=== PATIENT | female | born 1935 | race Hispanic/Latino ===

== ENCOUNTER 2024-08-16 12:30 | Inpatient (IN) | payer MEDICAID, SELFPAY ==
[2024-08-16 12:54] LABS: #Basophils Less than 0.03 10x3/uL (0.0-0.2); #Eosinophils Less than 0.03 10x3/uL (0.0-0.7); %Basophils 0.2 % (0.0-1.0); %Lymphocytes 21.2 % (21.0-51.0); %Neutrophils 68.4 % (42.0-75.0); Hemoglobin 9.9 g/dL (12.0-16.0); Mean Corpuscular HGB CONC 30.9 g/dL (32.0-36.0); Mean Corpuscular Hemoglobin 27.1 pg (27.0-31.0); Mean Corpuscular Volume 87.7 fL (78.0-98.0); Mean Platelet Volume 11.5 fL (7.4-10.4); Platelet Count 146 10x3/uL (130-400); RBC Distribution Width 13.2 % (11.5-14.5); Red Blood Cell (RBC) Count 3.65 mill/uL (4.20-5.40)
[2024-08-16 13:15] LABS: ALT (SGPT) 27 U/L (8-55); AST (SGOT) 124 U/L (5-34); Albumin 3.3 g/dL (3.4-4.8); Alkaline Phosphatase 134 U/L (40-110); Anion Gap 15 mmol/L (10-20); BUN (Urea Nitrogen) 53 mg/dL (9.8-20.1); Bilirubin, Total 0.5 mg/dL (0.2-1.2); Calc. Creatinine Clearance 0 mL/min (70-130); Calcium 9.3 mg/dL (7.8-10.44); Carbon Dioxide 19 mmol/L (23-31); Chloride 106 mmol/L (98-107); Estimated GFR 20; Globulin 4.4 g/dL (2.4-3.5); Glucose 144 mg/dL (83-110); Potassium 4.2 mmol/L (3.5-5.1); Protein, Total 7.7 g/dL (5.8-8.1); Sodium 136 mmol/L (136-145)
[2024-08-16 13:30] LABS: Troponin I 36.915 ng/mL (< 0.028)
[2024-08-16] MEDS ORDERED: fentaNYL 50 mcg/mL 1 mL Vial ONE (13:34)
[2024-08-16] MEDS ORDERED: Aspirin Chewable 81 MG TAB ONE (13:35)
[2024-08-16 13:44] LABS: INR-International Normal Ratio 1.1; Prothrombin Time 14.3 sec (12.0-14.7)
[2024-08-16 13:45] LABS: PTT 39.5 sec (22.9-36.1)
[2024-08-16] MEDS ORDERED: Heparin 25,000 units/D5W 500 ML ONE (13:47)
[2024-08-16] MEDS ORDERED: Heparin 5,000 UNITS/ML VIAL ONE (13:47)
[2024-08-16] MEDS ORDERED: KETAMINE 100 MG/ML (5ML VIAL) ONE (13:58)
[2024-08-16] MEDS ORDERED: Rocuronium Bromide 10 MG/ML (10ML VIAL) ONE ×2 (13:59→14:06)
[2024-08-16] MEDS ORDERED: EPINEPHrine 1 MG/10 ML Abboject SYRINGE ONE (14:06)
[2024-08-16] MEDS ORDERED: Furosemide 40 MG (4 mL) VIAL ONE (14:15)
[2024-08-16] MEDS ORDERED: Fentanyl CADD 100 ML IV SCH (14:30)
[2024-08-16] MEDS ORDERED: DOBUTamine 500 mg/250 ml 250 ML ONE (14:37)
[2024-08-16 14:54] LABS: Actual Bicarbonate (HCO3a) 15.8 mEq/L (22-28); Analyzer IN Cardio ER; Base Excess (BEa) -10.6 mEq/L (-2.0 to +3.0); Calcium, Ionized (arterial) 1.14 mmol/L (1.12-1.30); Carboxyhemoglobin (COHb) 1.3 gm% (0.0-3.0); Hematocrit-ABG 31 % (36.0-47.0); Hemoglobin (Hb) 10.4 g/dL (12.0-16.0); O2 Tension (PaO2), arterial 74.6 mmHg (> 60.0); Potassium - ABG Lab 3.69 mmol/L (3.70-5.30); pH, Arterial 7.249 (7.35-7.45)
[2024-08-16 14:58] LABS: Puncture Site Right Brachial art
[2024-08-16] MEDS ORDERED: NOREPINEPHRINE 8 MG/250 ML-D5W 250 ML ONE (15:02)
[2024-08-16] MEDS ORDERED: Ventilator Sedation Protocol 1 EACH FS SCH (15:35)
[2024-08-16 15:45] LABS: Bacteria/HPF None Seen HPF (None Seen); Bilirubin Negative (Negative); Blood, Urine Negative (Negative); CAUTI Indications for Culture Dysuria,urgency,freq; Glucose, Urine (Dipstick) Greater than 1000 mg/dL (Negative); Ketone, Urine Negative (Negative); Leukocyte Negative Leu/uL (Negative); Nitrite Negative (Negative); Protein, Urine (Dipstick) 30 mg/dL (Neg-Trace); RBC/HPF 0-3 HPF (0-3); Specific Gravity, Urine 1.021 (1.002-1.036); Squamous Epithelial 0-3 HPF (0-3)
[2024-08-16 15:52] LABS: Clarity Slightly Cloudy (Clear)
[2024-08-16 15:53] LABS: Urine Culture Reflex No No
[2024-08-16 16:49] LABS: Hematocrit 33.3 % (36.0-47.0); Hemoglobin 10.5 g/dL (12.0-16.0); Platelet Count 170 10x3/uL (130-400)
[2024-08-16] MEDS ORDERED: Fentanyl BOLUS 250 ML IVPB PRN (17:00)
[2024-08-16] MEDS ORDERED: DISCONTINUE PREVIOUS NARCOTIC PAIN MEDICATIONS AND BENZODIAZEPINES FS SCH (17:00)
[2024-08-16] MEDS ORDERED: Propofol 1,000 MG/100 ML VIAL IV PRN (17:00)
[2024-08-16] MEDS ORDERED: Propofol BOLUS 1,000 MG/100 ML VIAL IV PRN (17:00)
[2024-08-16] MEDS ORDERED: Morphine 2 MG/ML VIAL SLOW IVP PRN (17:00)
[2024-08-16 17:02] VITALS: BMI 25.6
[2024-08-16] MEDS: Furosemide 100 MG (10 mL) VIAL SLOW IVP SCH (17:46)
[2024-08-16] MEDS: Lorazepam 2 MG/ML VIAL SLOW IVP PRN (17:46)
[2024-08-16 18:52] LABS: Troponin I 106.269 ng/mL (< 0.028)
[2024-08-16] MEDS: Famotidine/PF 20 mg/2ml Vial SLOW IVP SCH (20:36)
[2024-08-16] MEDS ORDERED: Heparin 5,000 UNITS/ML VIAL SC SCH (21:00)
[2024-08-16] MEDS: NOREPINEPHRINE 8 MG/250 ML-D5W 250 ML IVPB SCH (21:40)
[2024-08-16 22:20] LABS: Influenza A by NAA Not Detected (NotDetected); Influenza B by NAA Not Detected (NotDetected); RSV by NAA Not Detected (NotDetected); SARS-CoV-2 NAA Rapid Test DETECTED (NotDetected)
[2024-08-17 00:50] LABS: PTT 138.7 sec (22.9-36.1)
[2024-08-17 04:30] LABS: #Basophils 0.04 10x3/uL (0.0-0.2); #Eosinophils Less than 0.03 10x3/uL (0.0-0.7); %Basophils 0.2 % (0.0-1.0); %Eosinophils 0.1 % (0.0-10.0); %Lymphocytes 11.5 % (21.0-51.0); %Neutrophils 79.8 % (42.0-75.0); Hematocrit 31.2 % (36.0-47.0); Hemoglobin 10.2 g/dL (12.0-16.0); Mean Corpuscular HGB CONC 32.7 g/dL (32.0-36.0); Mean Corpuscular Hemoglobin 27.3 pg (27.0-31.0); Mean Corpuscular Volume 83.6 fL (78.0-98.0); Mean Platelet Volume 11.9 fL (7.4-10.4); Platelet Count 179 10x3/uL (130-400); RBC Distribution Width 12.7 % (11.5-14.5); Red Blood Cell (RBC) Count 3.73 mill/uL (4.20-5.40)
[2024-08-17 05:02] LABS: Anion Gap 17 mmol/L (10-20); BUN (Urea Nitrogen) 58 mg/dL (9.8-20.1); Calc. Creatinine Clearance 19 mL/min (70-130); Calcium 8.7 mg/dL (7.8-10.44); Carbon Dioxide 19 mmol/L (23-31); Chloride 106 mmol/L (98-107); Estimated GFR 20; Glucose 150 mg/dL (83-110); Magnesium 1.9 mg/dL (1.6-2.6); Sodium 138 mmol/L (136-145)
[2024-08-17 05:09] LABS: ALT (SGPT) 46 U/L (8-55); AST (SGOT) 309 U/L (5-34); Albumin 2.8 g/dL (3.4-4.8); Alkaline Phosphatase 128 U/L (40-110); Bilirubin, Direct 0.3 mg/dL (0.1-0.3); Bilirubin, Total 0.5 mg/dL (0.2-1.2); Protein, Total 7.1 g/dL (5.8-8.1)
[2024-08-17] MEDS: Dapagliflozin Propanediol 10 MG TAB PO SCH (08:25)
[2024-08-17] MEDS: levETIRAcetam 500 MG (5 mL) VIAL SLOW IVP SCH (08:26)
[2024-08-17] MEDS: Fentanyl CADD 100 ML IV SCH (11:33)
[2024-08-17] MEDS ORDERED: Furosemide 100 MG (10 mL) VIAL SLOW IVP SCH (12:45)
[2024-08-17] MEDS: Furosemide 100 MG (10 mL) VIAL SLOW IVP SCH (13:24)
[2024-08-17] MEDS: Dexamethasone 4 mg/ml Vial SLOW IVP SCH (13:24)
[2024-08-17] MEDS: Atorvastatin Calcium 40 MG TAB PO SCH (20:01)
[2024-08-17] MEDS: Albumin 25% 25 GM (100 mL) BOT IVPB SCH (22:09)
[2024-08-17] MEDS: Albumin 25% 100 ML ONE (22:11)
[2024-08-18 00:15] LABS: Anion Gap 21 mmol/L (10-20); BUN (Urea Nitrogen) 54 mg/dL (9.8-20.1); Calc. Creatinine Clearance 21 mL/min (70-130); Calcium 8.9 mg/dL (7.8-10.44); Carbon Dioxide 19 mmol/L (23-31); Chloride 102 mmol/L (98-107); Estimated GFR 21; Glucose 189 mg/dL (83-110); Magnesium 1.8 mg/dL (1.6-2.6); Potassium 3.5 mmol/L (3.5-5.1); Sodium 138 mmol/L (136-145)
[2024-08-18] MEDS: Magnesium 2 GM/50 ML(in water) 2 GM in Premix 1 BAG IVPB SCH (00:59)
[2024-08-18] MEDS: Dexmedetomidine In 0.9 % NaCl 100 ML IVPB SCH (03:55)
[2024-08-18 04:15] LABS: #Basophils Less than 0.03 10x3/uL (0.0-0.2); #Eosinophils Less than 0.03 10x3/uL (0.0-0.7); %Basophils 0.1 % (0.0-1.0); %Lymphocytes 8.5 % (21.0-51.0); %Neutrophils 83.9 % (42.0-75.0); Hematocrit 28.2 % (36.0-47.0); Hemoglobin 9.8 g/dL (12.0-16.0); Mean Corpuscular HGB CONC 34.8 g/dL (32.0-36.0); Mean Corpuscular Hemoglobin 27.8 pg (27.0-31.0); Mean Corpuscular Volume 79.9 fL (78.0-98.0); Mean Platelet Volume 11.8 fL (7.4-10.4); Platelet Count 168 10x3/uL (130-400); RBC Distribution Width 12.6 % (11.5-14.5); Red Blood Cell (RBC) Count 3.53 mill/uL (4.20-5.40)
[2024-08-18 05:18] LABS: ALT (SGPT) 37 U/L (8-55); AST (SGOT) 175 U/L (5-34); Albumin 3.1 g/dL (3.4-4.8); Alkaline Phosphatase 105 U/L (40-110); Anion Gap 18 mmol/L (10-20); BUN (Urea Nitrogen) 56 mg/dL (9.8-20.1); Bilirubin, Total 0.9 mg/dL (0.2-1.2); Calc. Creatinine Clearance 20 mL/min (70-130); Calcium 8.7 mg/dL (7.8-10.44); Carbon Dioxide 20 mmol/L (23-31); Chloride 102 mmol/L (98-107); Estimated GFR 21; Globulin 3.9 g/dL (2.4-3.5); Glucose 161 mg/dL (83-110); Magnesium 2.8 mg/dL (1.6-2.6); Potassium 3.4 mmol/L (3.5-5.1); Sodium 137 mmol/L (136-145)
[2024-08-18] MEDS: Heparin 25,000 units/D5W 500 ML IVPB SCH (06:05)
[2024-08-18] MEDS: Dexamethasone 4 mg/ml Vial SLOW IVP SCH (07:52)
[2024-08-18] MEDS: Ascorbic Acid 500 mg Chewable Tablet PO SCH (07:53)
[2024-08-18] MEDS: Zinc Sulfate 220 MG CAP PO SCH (07:53)
[2024-08-18] MEDS: Furosemide 40 MG (4 mL) VIAL SLOW IVP SCH (08:33)
[2024-08-18] MEDS: Potassium Chloride 40 MEQ in Premix 1 BAG IVPB SCH (08:33)
[2024-08-18] MEDS: Albumin 25% 25 GM (100 mL) BOT IVPB SCH (13:37)
[2024-08-18 16:09] LABS: Hematocrit 28.5 % (36.0-47.0); Hemoglobin 9.9 g/dL (12.0-16.0); Platelet Count 184 10x3/uL (130-400)
[2024-08-19 04:41] LABS: #Basophils Less than 0.03 10x3/uL (0.0-0.2); #Eosinophils Less than 0.03 10x3/uL (0.0-0.7); %Basophils 0.1 % (0.0-1.0); %Lymphocytes 7.6 % (21.0-51.0); %Monocytes 6.4 % (0.0-10.0); %Neutrophils 85.6 % (42.0-75.0); Hematocrit 27.9 % (36.0-47.0); Hemoglobin 9.6 g/dL (12.0-16.0); Mean Corpuscular HGB CONC 34.4 g/dL (32.0-36.0); Mean Corpuscular Hemoglobin 27.8 pg (27.0-31.0); Mean Corpuscular Volume 80.9 fL (78.0-98.0); Mean Platelet Volume 11.8 fL (7.4-10.4); Platelet Count 191 10x3/uL (130-400); RBC Distribution Width 12.6 % (11.5-14.5); Red Blood Cell (RBC) Count 3.45 mill/uL (4.20-5.40)
[2024-08-19 05:11] LABS: Anion Gap 19 mmol/L (10-20); BUN (Urea Nitrogen) 64 mg/dL (9.8-20.1); Calc. Creatinine Clearance 20 mL/min (70-130); Calcium 9.2 mg/dL (7.8-10.44); Carbon Dioxide 20 mmol/L (23-31); Chloride 102 mmol/L (98-107); Estimated GFR 21; Glucose 151 mg/dL (83-110); Magnesium 2.6 mg/dL (1.6-2.6); Potassium 3.4 mmol/L (3.5-5.1); Sodium 138 mmol/L (136-145)
[2024-08-19] MEDS: Heparin 10,000 UNITS/ 10 ML VIAL SLOW IVP SCH (08:02)
[2024-08-19] MEDS: Potassium Bicarbonate/Cit Ac 20 MEQ TAB PO SCH (09:12)
[2024-08-19] MEDS: Ampicillin/Sulbactam 3 GM in Sodium Chloride 0.9% 100 ML IVPB SCH (11:44)
[2024-08-20 04:07] LABS: #Basophils Less than 0.03 10x3/uL (0.0-0.2); #Eosinophils Less than 0.03 10x3/uL (0.0-0.7); %Basophils 0.1 % (0.0-1.0); %Lymphocytes 6.5 % (21.0-51.0); %Monocytes 6.7 % (0.0-10.0); %Neutrophils 86.4 % (42.0-75.0); Hematocrit 31.6 % (36.0-47.0); Hemoglobin 10.8 g/dL (12.0-16.0); Mean Corpuscular HGB CONC 34.2 g/dL (32.0-36.0); Mean Corpuscular Hemoglobin 27.6 pg (27.0-31.0); Mean Corpuscular Volume 80.6 fL (78.0-98.0); Mean Platelet Volume 12.2 fL (7.4-10.4); Platelet Count 217 10x3/uL (130-400); RBC Distribution Width 12.8 % (11.5-14.5); Red Blood Cell (RBC) Count 3.92 mill/uL (4.20-5.40)
[2024-08-20 04:42] LABS: Anion Gap 19 mmol/L (10-20); BUN (Urea Nitrogen) 83 mg/dL (9.8-20.1); Calc. Creatinine Clearance 19 mL/min (70-130); Calcium 8.7 mg/dL (7.8-10.44); Carbon Dioxide 22 mmol/L (23-31); Chloride 100 mmol/L (98-107); Estimated GFR 20; Glucose 241 mg/dL (83-110); Magnesium 2.6 mg/dL (1.6-2.6); Potassium 3.8 mmol/L (3.5-5.1); Sodium 137 mmol/L (136-145)
[2024-08-21 04:56] LABS: #Basophils Less than 0.03 10x3/uL (0.0-0.2); #Eosinophils Less than 0.03 10x3/uL (0.0-0.7); %Basophils 0.1 % (0.0-1.0); %Lymphocytes 5.3 % (21.0-51.0); %Monocytes 9.2 % (0.0-10.0); Hematocrit 31.3 % (36.0-47.0); Hemoglobin 10.3 g/dL (12.0-16.0); Mean Corpuscular HGB CONC 32.9 g/dL (32.0-36.0); Mean Corpuscular Volume 82.2 fL (78.0-98.0); Mean Platelet Volume 11.9 fL (7.4-10.4); Platelet Count 226 10x3/uL (130-400); Red Blood Cell (RBC) Count 3.81 mill/uL (4.20-5.40)
[2024-08-21 05:22] LABS: Anion Gap 19 mmol/L (10-20); BUN (Urea Nitrogen) 95 mg/dL (9.8-20.1); Calc. Creatinine Clearance 15 mL/min (70-130); Calcium 7.9 mg/dL (7.8-10.44); Carbon Dioxide 22 mmol/L (23-31); Chloride 98 mmol/L (98-107); Estimated GFR 16; Glucose 143 mg/dL (83-110); Magnesium 2.5 mg/dL (1.6-2.6); Potassium 4.1 mmol/L (3.5-5.1); Sodium 135 mmol/L (136-145)
[2024-08-21] MEDS: Polyethylene Glycol 3350 17 GM Packet PO SCH (09:35)
[2024-08-21] MEDS: Famotidine/PF 20 mg/2ml Vial SLOW IVP SCH (21:32)
[2024-08-22 03:43] LABS: #Basophils Less than 0.03 10x3/uL (0.0-0.2); #Eosinophils Less than 0.03 10x3/uL (0.0-0.7); %Basophils 0.1 % (0.0-1.0); %Monocytes 9.2 % (0.0-10.0); %Neutrophils 84.3 % (42.0-75.0); Hematocrit 30.6 % (36.0-47.0); Hemoglobin 10.2 g/dL (12.0-16.0); Mean Corpuscular HGB CONC 33.3 g/dL (32.0-36.0); Mean Corpuscular Hemoglobin 27.4 pg (27.0-31.0); Mean Corpuscular Volume 82.3 fL (78.0-98.0); Mean Platelet Volume 11.7 fL (7.4-10.4); Platelet Count 207 10x3/uL (130-400); RBC Distribution Width 12.8 % (11.5-14.5); Red Blood Cell (RBC) Count 3.72 mill/uL (4.20-5.40)
[2024-08-22 03:53] LABS: Anion Gap 19 mmol/L (10-20); BUN (Urea Nitrogen) 97 mg/dL (9.8-20.1); Calc. Creatinine Clearance 15 mL/min (70-130); Calcium 7.6 mg/dL (7.8-10.44); Carbon Dioxide 21 mmol/L (23-31); Chloride 96 mmol/L (98-107); Estimated GFR 16; Glucose 163 mg/dL (83-110); Magnesium 2.3 mg/dL (1.6-2.6); Potassium 4.1 mmol/L (3.5-5.1); Sodium 132 mmol/L (136-145)
[2024-08-22 13:40] VITALS: BMI 25.9
[2024-08-22] MEDS: Metoclopramide HCl 10 MG (2 mL) VIAL IVP SCH (16:09)
[2024-08-22 16:25] LABS: Hematocrit 29.5 % (36.0-47.0); Hemoglobin 10.1 g/dL (12.0-16.0); Platelet Count 201 10x3/uL (130-400)
[2024-08-22] MEDS: Sodium Chloride 0.9% 250 ML 250 ML IVPB SCH (17:34)
[2024-08-22] MEDS: Ondansetron PF 4 MG/2 ML Vial IVP PRN (17:34)
[2024-08-22] MEDS ORDERED: Vasopressin In 0.9 % NaCl 40 UNIT in Premix 1 BAG IV SCH (18:15)
[2024-08-23 04:24] LABS: #Basophils Less than 0.03 10x3/uL (0.0-0.2); #Eosinophils Less than 0.03 10x3/uL (0.0-0.7); %Basophils 0.2 % (0.0-1.0); %Monocytes 9.1 % (0.0-10.0); Hematocrit 28.3 % (36.0-47.0); Hemoglobin 9.7 g/dL (12.0-16.0); Mean Corpuscular HGB CONC 34.3 g/dL (32.0-36.0); Mean Corpuscular Hemoglobin 27.4 pg (27.0-31.0); Mean Corpuscular Volume 79.9 fL (78.0-98.0); Mean Platelet Volume 12.4 fL (7.4-10.4); Platelet Count 204 10x3/uL (130-400); RBC Distribution Width 12.8 % (11.5-14.5); Red Blood Cell (RBC) Count 3.54 mill/uL (4.20-5.40)
[2024-08-23 04:40] LABS: Anion Gap 18 mmol/L (10-20); BUN (Urea Nitrogen) 101 mg/dL (9.8-20.1); Calc. Creatinine Clearance 19 mL/min (70-130); Calcium 7.8 mg/dL (7.8-10.44); Carbon Dioxide 21 mmol/L (23-31); Chloride 97 mmol/L (98-107); Estimated GFR 19; Glucose 197 mg/dL (83-110); Magnesium 2.3 mg/dL (1.6-2.6); Sodium 132 mmol/L (136-145)
[2024-08-23 07:40] VITALS: BP 119/41
[2024-08-23 09:41] VITALS: TEMP 98.4
== END 2024-08-23 10:36 | disposition short-term general hospital (02) | DRG 306 ==
LOC: ERS 12:30 → SUATTDRO 12:30 → CCU 15:45
PROVIDERS: ADMIT Family Medicine; ATTEND Internal Medicine
PROC: 05HN33Z Insertion of Infusion Device into Left Internal Jugular Vein, Percutaneous Approach (ICD-10-PCS; principal; 2024-08-16)
PROC: 0BH17EZ Insertion of Endotracheal Airway into Trachea, Via Natural or Artificial Opening (ICD-10-PCS; 2024-08-16)
PROC: 4A033R1 Measurement of Arterial Saturation, Peripheral, Percutaneous Approach (ICD-10-PCS; 2024-08-16)
DX: I35.0 Nonrheumatic aortic (valve) stenosis (principal); I50.23 Acute on chronic systolic (congestive) heart failure; J96.01 Acute respiratory failure with hypoxia; U07.1 COVID-19; R57.0 Cardiogenic shock; J18.9 Pneumonia, unspecified organism; I13.0 Hypertensive heart and chronic kidney disease with heart failure and stage 1 through stage 4 chronic kidney disease, or unspecified chronic kidney disease; N17.9 Acute kidney failure, unspecified; E87.20 Acidosis, unspecified; I42.9 Cardiomyopathy, unspecified; N18.4 Chronic kidney disease, stage 4 (severe); I5A Non-ischemic myocardial injury (non-traumatic); E88.09 Other disorders of plasma-protein metabolism, not elsewhere classified; G40.909 Epilepsy, unspecified, not intractable, without status epilepticus; Z66 Do not resuscitate; D63.1 Anemia in chronic kidney disease; Z51.5 Encounter for palliative care; E11.22 Type 2 diabetes mellitus with diabetic chronic kidney disease; Z79.899 Other long term (current) drug therapy
CPT/HCPCS: 0241U; 31500; 36415; 36416; 36556; 36600; 43752; 71045; 80048; 80053; 80076; 81001; 82805; 83735; 83880; 84484; 85014; 85018; 85025; 85049; 85610; 85730; 86141; 87040; 93005; 93306; 94002; 94003; 96365; 96366; 96375; J0171; J0295; J1100; J1250; J1644; J1940; J1953; J2060; J2405; J2765; J3010; J3475; J3480; J3490; J7050; P9047